=== PATIENT | female | born 1935 | race Caucasian/White ===

== ENCOUNTER 2019-04-22 14:54 | Emergency (ER) | payer MEDICARE, BC ==
--- NOTE | 2019-04-22 16:17 | ED ---
Complex/Multi-Sys Presentation - History Of Current Complaint Chief Complaint: EDFall Time Seen by Provider: 04/22/19 16:04 Hx Obtained From: Patient, Family/Bookkeepers Supervisor - Family Onset/Duration: Sudden Onset, Still Present Timing: Constant Severity Currently: Moderate Severity Initially: Moderate - Allergies/Home Medications Allergies/Adverse Reactions: Allergies Allergy/AdvReac Type Severity Reaction Status Date / Time No Known Allergies Allergy Verified 09/21/14 22:16 PMH/Surg Hx/FS Hx/Imm Hx Previously Healthy: Yes Endocrine/Hematology History: Denies: Hx Diabetes Cardiovascular History: Reports: Hx Hypertension - controlled with medication Denies: Hx Hypercholesterolemia, Hx Pacemaker/ICD Sensory History: Reports: Hx Hearing Aid Denies: Hx Legally Blind, Hx Deafness Opthamlomology History: Denies: Hx Legally Blind EENT History: Denies: Hx Deafness Psychiatric History: Denies: Hx Panic Disorder - Cancer History Hx Chemotherapy: No Hx Radiation Therapy: No - Surgical History Surgical History: Yes Surgery Procedure, Year, and Place: tonsilectomy, neymar, cataracts, BI LAT HIP IMPLANT Infectious Disease History: No Infectious Disease History: Denies: Hx Clostridium Difficile, Hx Hepatitis, Hx Human Immunodeficiency Virus (HIV), Hx of Known/Suspected MRSA, Hx Shingles, Hx Tuberculosis, Hx Known/ Suspected VRE, Hx Known/Suspected VRSA, History Other Infectious Disease, Traveled Outside the [place] in Last 30 Days - Family History Known Family History: Negative: Cardiac Disease, Diabetes - Social History Occupation: Retired Lives: With Family Alcohol Use: None Hx Substance Use: No Substance Use Type: Reports: None Hx Tobacco Use: No Smoking Status (MU): Never Smoked Tobacco Have You Smoked in the Last Year: No Review of Systems Positive: Arthralgia - Right hip. Negative: Myalgia All Other Systems Reviewed And Are Negative: Yes Physical Exam - Summary Physical Exam Summary: Appearance: The patient is well-nourished in no acute distress and in no acute pain. No apparent injuries after a fall. Skin: The skin is warm and dry, and skin color reflects adequate perfusion. HEENT: The head is normocephalic and atraumatic. The pupils are equal and reactive. The conjunctivae are clear and without drainage. Nares are patent and without drainage. Mouth reveals moist mucous membranes, and the throat is without erythema and exudate. The external ears are intact. The ear canals are patent and without drainage. The tympanic membranes are intact. Neck: The neck is supple with full range of motion and non-tender. There are no carotid bruits. There is no neck vein distension. Respiratory: Chest is non-tender. Lungs are clear to auscultation and breath sounds are symmetrical and equal. Cardiovascular: Heart is regular rate and rhythm. There is no murmur or rub auscultated. There is no peripheral edema and pulses are symmetrical and equal. Abdomen: The abdomen is soft and non-tender. There are normal bowel sounds heard in all four quadrants and there is no organomegaly palpated. Musculoskeletal: There is no back tenderness noted. Extremities are non-tender with full range of motion. There is good capillary refill. There is no peripheral edema or calf tenderness elicited. Neurological: Patient is alert and oriented to person, place and time. The patient has symmetrical motor strength in all four extremities. Cranial nerves are grossly intact. Deep tendon reflexes are symmetrical and equal in all four extremities. Psychiatric: The patient has an appropriate affect and does not exhibit any anxiety or depression. Triage Information Reviewed: Yes Vital Signs On Initial Exam: Initial Vitals Temp Pulse Resp BP Pulse Ox 98.2 F 79 16 167/81 98 04/22/19 14:56 04/22/19 14:56 04/22/19 14:56 04/22/19 14:56 04/22/19 14:56 Vital Signs Reviewed: Yes Procedures - Sedation Patient Received Moderate/Deep Sedation with Procedure: No Diagnostics - Vital Signs Vital Signs Temp Pulse Resp BP Pulse Ox 04/22/19 14:56 98.2 F 79 16 167/81 98 - Laboratory Lab Statement: Any lab studies that have been ordered have been reviewed, and results considered in the medical decision making process. Complex Multi-Symp Course/Dx Course Of Treatment: Ms. Resendiz lives with her family. She was alone for 2 possibly 3 hours and when the family returned they found her on the ground. At first they got her up and she seemed fine but then it one point she began to complain of hip pain. She was nontoxic in appearance with stable vital signs and pleasant in demeanor here. I couldn't find any sign of injury on physical exam and feel she safe to go back home. - Diagnoses Provider Diagnoses: Fall with no injury Discharge ED - Sign-Out/Discharge Documenting (check all that apply): Patient Departure - Discharge - Discharge Plan Condition: Stable Disposition: HOME Patient Education Materials: Fall Prevention for Older Adults (ED) Referrals: Chani Robertson MD [Primary Care Provider] - Additional Instructions: Follow up with your primary care provider in 2-3 days. Return to the Emergency Department for new or worsening symptoms. - Billing Disposition and Condition Condition: STABLE Disposition: Home - Attestation Statements Document Initiated by Robert: Yes Documenting Jenniferibe: Jyothi Voss Provider For Whom Robert is Documenting (Include Credential): Ishaan Jimenez MD Scribe Attestation: Jyothi Cabrera, jenniferibed for Ishaan Jimenez MD on 04/22/19 at 1636. Scribe Documentation Reviewed: Yes Provider Attestation: The documentation as recorded by the Jyothi wade accurately reflects the service I personally performed and the decisions made by me, Ishaan Jimenez MD Status of Scribe Document: Viewed
[2019-04-22 16:23] VITALS: BP 160/95
--- NOTE | 2019-04-22 16:53 | ED ---
Progress - Progress Note Progress Note: HPI: Patient is an 84 y/o F presenting to the ED via EMS after a fall. Patient is present with her family. Patient was found by her family on the floor after a fall. Patients family is unsure how the patient fell. Patients family believes the patient was lying on the floor for about 3-4 hours before being found by her family. Patient reports right hip pain. Patient denies neck pain, headache, or myalgia at the present time. Patient is able to bear weight and walk. ROS: Positive right hip pain; negative neck pain, headache, or myalgia. Course/Dx - Course Course Of Treatment: Ms. Resendiz lives with her family. She was alone for 2 possibly 3 hours and when the family returned they found her on the ground. At first they got her up and she seemed fine but then it one point she began to complain of hip pain. She was nontoxic in appearance with stable vital signs and pleasant in demeanor here. I couldn't find any sign of injury on physical exam and feel she safe to go back home. - Diagnoses Provider Diagnoses: Fall with no injury Discharge ED - Sign-Out/Discharge Documenting (check all that apply): Patient Departure - Discharge - Discharge Plan Condition: Stable Disposition: HOME Patient Education Materials: Fall Prevention for Older Adults (ED) Referrals: Chani Robertson MD [Primary Care Provider] - Additional Instructions: Follow up with your primary care provider in 2-3 days. Return to the Emergency Department for new or worsening symptoms. - Attestation Statements Document Initiated by Scribe: Yes Documenting Scribe: Jyothi Voss Provider For Whom Scribe is Documenting (Include Credential): Ishaan Jimenez MD Scribe Attestation: Jyothi Cabrera, scribed for Ishaan Jimenez MD on 04/22/19 at 1653. Status of Scribe Document: Ready
== END 2019-04-22 16:20 | disposition home or self-care (01) ==
LOC: ED 14:54
DX: Z04.3 Encounter for examination and observation following other accident (principal); W19.XXXA Unspecified fall, initial encounter; Y92.9 Unspecified place or not applicable; I10 Essential (primary) hypertension; Z96.643 Presence of artificial hip joint, bilateral; Z90.49 Acquired absence of other specified parts of digestive tract
CPT/HCPCS: 99282